=== PATIENT | female | born 1945 | race Caucasian/White ===

== ENCOUNTER 2024-09-29 18:50 | Inpatient (IN) | payer MEDICARE, OTHER ==
[~2024-09-29] VITALS: Ht 154.9 cm; Wt 83.9 kg
[2024-09-29] MEDS ORDERED: ACETAMINOPHEN 325 MG TABLET ONE (20:27)
[2024-09-29 20:29] LABS: BASOPHILS % (AUTO) 0.1 % (0.0-2.0); HEMATOCRIT 37 % (33-45); HEMOGLOBIN 12.2 g/dL (11.5-14.8); LYMPHOCYTES % (AUTO) 13.3 % (20.0-44.0); MEAN CORPUSCULAR HEMOGLOBIN 29 PG (26.0-33.0); MEAN CORPUSCULAR HGB CONC 33 g/dl (31.0-36.0); MEAN CORPUSCULAR VOLUME 87 fL (82-100); NEUTROPHILS # (AUTO) 11.9 K/uL (1.8-8.9); NEUTROPHILS % (AUTO) 79.6 % (43.0-81.0); PLATELET COUNT (AUTO) 278 K/uL (150-450); RED BLOOD CELL COUNT(AUTO) 4.19 MIL/uL (4.0-5.2); RED CELL DISTRIBUTION WIDTH 13.8 % (11.5-15.0)
[2024-09-29] MEDS ORDERED: IOHEXOL-350 100 ML VIAL IV ONE (20:32)
[2024-09-29] MEDS ORDERED: IV NS 0.9% 250 ML IV ONE (20:32)
[2024-09-29 20:39] LABS: CALCIUM, SERUM 8.6 mg/dL (8.5-10.1); CARBON DIOXIDE 23 mmol/L (21-32); CHLORIDE 105 mmol/L (98-107); CREATININE 1.6 mg/dL (0.6-1.3); GLUCOSE 173 mg/dL (74-106); POTASSIUM 4.6 mmol/L (3.5-5.1); SODIUM SERUM 139 mmol/L (136-145); UREA NITROGEN, BLOOD 41 mg/dL (7-18)
[2024-09-29 20:45] LABS: ALANINE AMINOTRANSFERASE 22 U/L (12-78); ALBUMIN 3.7 g/dL (3.4-5.0); ALKALINE PHOSPHATASE 85 U/L (46-116); ASPARTATE AMINOTRANSFERASE 16 U/L (15-37); BILIRUBIN,DIRECT 0.1 mg/dL (0.0-0.2); BILIRUBIN,TOTAL 0.4 mg/dL (0.2-1.0); TOTAL PROTEIN, SERUM 7.7 g/dL (6.4-8.2)
[2024-09-29] MEDS: ACETAMINOPHEN 325 MG TABLET PO ONE (20:53)
[2024-09-29] MEDS: IV NS 0.9% 500 ML BAG IV ONE (20:53)
[2024-09-29 23:02] VITALS: O2SAT 97
[2024-09-29] MEDS ORDERED: AMLODIPINE BESYLATE 5 MG TABLET ONE (23:29)
[2024-09-29] MEDS: AMLODIPINE BESYLATE 5 MG TABLET PO ONE (23:35)
[2024-09-30 00:24] VITALS: BP 131/54; TEMP 98.1; O2SAT 95
[2024-09-30] MEDS ORDERED: ACETAMINOPHEN 325 MG TABLET PO PRN (00:30)
[2024-09-30] MEDS ORDERED: MAGNESIUM HYDROXIDE 30 ML UDC PO PRN (00:30)
[2024-09-30] MEDS ORDERED: Z GUARD REMEDY 4 OZ OINT TP PRN (00:30)
[2024-09-30] MEDS ORDERED: CLONIDINE HCL 0.1 MG TABLET PO PRN (00:30)
[2024-09-30] MEDS ORDERED: MAG HYDROX/AL HYDROX/SIMETH 30 ML UDC PO PRN (00:30)
[2024-09-30] MEDS ORDERED: NITROGLYCERIN 0.4 MG/TAB BOTTLE SL PRN (00:30)
[2024-09-30 05:20] VITALS: BP 127/41; TEMP 98.4; O2SAT 96
[2024-09-30 06:58] LABS: BASOPHILS % (AUTO) 0.1 % (0.0-2.0); HEMATOCRIT 33 % (33-45); HEMOGLOBIN 11.1 g/dL (11.5-14.8); LYMPHOCYTES # (AUTO) 2.8 K/uL (0.8-4.8); LYMPHOCYTES % (AUTO) 24.6 % (20.0-44.0); MEAN CORPUSCULAR HEMOGLOBIN 29 PG (26.0-33.0); MEAN CORPUSCULAR HGB CONC 34 g/dl (31.0-36.0); MEAN CORPUSCULAR VOLUME 86 fL (82-100); MONOCYTES % (AUTO) 8.4 % (2.0-12.0); NEUTROPHILS # (AUTO) 7.7 K/uL (1.8-8.9); NEUTROPHILS % (AUTO) 66.9 % (43.0-81.0); PLATELET COUNT (AUTO) 269 K/uL (150-450); RED BLOOD CELL COUNT(AUTO) 3.79 MIL/uL (4.0-5.2); RED CELL DISTRIBUTION WIDTH 13.7 % (11.5-15.0); WHITE BLOOD COUNT (AUTO) 11.6 K/uL (4.3-11.0)
[2024-09-30 07:15] LABS: CALCIUM, SERUM 8.8 mg/dL (8.5-10.1); CARBON DIOXIDE 23 mmol/L (21-32); CHLORIDE 109 mmol/L (98-107); CREATININE 1.2 mg/dL (0.6-1.3); GLUCOSE 123 mg/dL (74-106); MAGNESIUM 1.6 mg/dL (1.8-2.4); PHOSPHORUS 3.8 mg/dL (2.5-4.9); POTASSIUM 4.6 mmol/L (3.5-5.1); SODIUM SERUM 143 mmol/L (136-145); UREA NITROGEN, BLOOD 40 mg/dL (7-18)
[2024-09-30 07:42] LABS: CHOLESTEROL 96 mg/dL (<200); HDL CHOLESTEROL 44 mg/dL (40-60); LDL 42 mg/dL (0-99); TRIGLYCERIDES 97 mg/dL (30-150)
[2024-09-30] MEDS: PANTOPRAZOLE 40 MG TABLET.DR PO SCH (08:06)
[2024-09-30 08:10] LABS: APPEARANCE,URINE CLEAR (CLEAR); BILIRUBIN,URINE NEGATIVE (NEGATIVE); BLOOD, URINE NEGATIVE Ery/uL (NEGATIVE); COLOR,URINE YELLOW (YELLOW); KETONES,URINE NEGATIVE (NEGATIVE); LEUKOCYTE ESTERASE ,URINE NEGATIVE (NEGATIVE); NITRITE, URINE NEGATIVE (NEGATIVE); PROTEIN,URINE 1+ mg/dl (NEGATIVE); UGLUCOSE NEGATIVE (NEGATIVE); UROBILINOGEN,URINE 0.2 EU/dL (0.2)
[2024-09-30 08:28] LABS: URINE SODIUM, RANDOM 63 mmol/l (40-220)
[2024-09-30 08:33] VITALS: BP 154/62; TEMP 97.9; O2SAT 95
[2024-09-30 09:00] LABS: RBC,URINE 0-2 /HPF (0-2)
[2024-09-30 09:01] LABS: ADD URINE CULTURE YES; BACTERIA,URINE Rare /HPF (None Seen); SQUAMOUS EPITHELIAL CELL,UR Rare /HPF (None Seen)
[2024-09-30 09:02] LABS: WBC,URINE 21-50 /HPF (0-3)
[2024-09-30] MEDS: CLOPIDOGREL BISULFATE 75 MG TABLET PO SCH (09:15)
[2024-09-30] MEDS: MAGNESIUM OXIDE 400 MG TABLET PO ONE (09:16)
[2024-09-30] MEDS ORDERED: ATOR80TA PO (09:34)
[2024-09-30] MEDS ORDERED: AMLO-212 PO (09:34)
[2024-09-30] MEDS ORDERED: RIVA10TA PO (09:34)
[2024-09-30] MEDS ORDERED: INSU100I35 SQ (09:34)
[2024-09-30] MEDS ORDERED: ALLO300T2 PO (09:34)
[2024-09-30] MEDS ORDERED: CLOP75TA15 PO (09:34)
[2024-09-30] MEDS ORDERED: METO-358 PO (09:34)
[2024-09-30] MEDS ORDERED: MAGNESIUM OXIDE 400 MG TABLET PO SCH (10:30)
[2024-10-01 20:32] LABS: OSMOLALITY,URINE 490 mOS/kg (340-1090)
== END 2024-09-30 16:23 | disposition home or self-care (01) | DRG 205 ==
LOC: ER 19:25 → TELE 09-30 00:01 → MED 09-30 11:35
PROVIDERS: ADMIT Nurse Practitioner Family; ATTEND Internal Medicine
DX: M94.0 Chondrocostal junction syndrome [Tietze] (principal); N17.0 Acute kidney failure with tubular necrosis; E66.9 Obesity, unspecified; I48.91 Unspecified atrial fibrillation; Z68.35 Body mass index [BMI] 35.0-35.9, adult; Z95.5 Presence of coronary angioplasty implant and graft; Z79.01 Long term (current) use of anticoagulants; E78.5 Hyperlipidemia, unspecified; V89.2XXA Person injured in unspecified motor-vehicle accident, traffic, initial encounter; Y93.9 Activity, unspecified; Y92.410 Unspecified street and highway as the place of occurrence of the external cause; I10 Essential (primary) hypertension; E11.9 Type 2 diabetes mellitus without complications; D72.829 Elevated white blood cell count, unspecified; I25.10 Atherosclerotic heart disease of native coronary artery without angina pectoris; Z79.4 Long term (current) use of insulin; Z79.02 Long term (current) use of antithrombotics/antiplatelets; Z79.899 Other long term (current) drug therapy; Z87.891 Personal history of nicotine dependence
CPT/HCPCS: 36415; 70450-TC; 80048-TC; 80061-TC; 80076-TC; 81001; 83735-TC; 83935-TC; 84100-TC; 84300-TC; 84484-TC; 85025-TC; 87086-TC; 94760-TC; 94799-TC; G0378; J7040; J7050; Q9967